=== PATIENT | male | born 1960 | race Caucasian/White ===

== ENCOUNTER 2016-09-20 15:24 | Inpatient (IN) | payer BC ==
[~2016-09-20] VITALS: Ht 182.9 cm; Wt 91.1 kg
[2016-09-20] MEDS ORDERED: cloNIDine HCL 0.1 MG TAB PO ONE (15:45)
[2016-09-20 16:20] LABS: Basophils # (auto) 0 uL; Basophils % (auto) 0.4 % (0.0-2.0); CONDITION Y; Eosinophils # (auto) 0.1 uL; Eosinophils % (auto) 1.2 % (0.0-7.0); Hematocrit 44.5 % (41.0-53.0); Hemoglobin 15.2 g/dL (13.5-17.5); Lymphocytes # (auto) 1.2 uL; Lymphocytes % (auto) 15.4 % (10.0-50.0); Mean Corpuscular Hgb Conc. 34.1 g/dL (32.0-36.0); Mean Corpuscular Volume 90.8 fL (80.0-100.0); Mean Platelet Volume 10.8 fL (7.4-10.4); Monocytes # (auto) 0.6 uL; Monocytes % (auto) 8.2 % (0.0-12.0); Neutrophils # (auto) 5.6 uL; Neutrophils % (auto) 74.8 % (37.0-80.0); Platelet Count (auto) 178 10^3/uL (140-450); Red Cell Distribution Width 16.5 % (11.6-16.0); SUSPECT SEE PRINTOUT; White Blood Cell 7.5 10^3/uL (4.4-10.8)
[2016-09-20 16:25] LABS: Albumin 3.7 g/dL (3.4-5.0); BUN/Creatinine Ratio 13.9; Calcium 8.7 mg/dL (8.5-10.1); Magnesium 2.3 mg/dL (1.6-2.6); Potassium 3.9 mmol/L (3.5-5.1)
[2016-09-20 16:30] LABS: Bilirubin, Total 1.7 mg/dL (0.2-1.0); Total Protein 7.7 g/dL (6.4-8.2)
[2016-09-20 16:32] LABS: B-Type Natriuretic Peptide 1048.35 pg/mL (0-100)
[2016-09-20] MEDS ORDERED: hydrALAZINE HCL 20 MG/ML VL IV ONE (16:45)
[2016-09-20 16:54] LABS: Temperature: 23.1 C (20.0-25.0)
[2016-09-20] MEDS ORDERED: DEXTROSE (50%) 50ML SYRG IV PRN (17:00)
[2016-09-20] MEDS ORDERED: ENALAPRIL MALEATE 2.5 MG TAB PO ONE (17:00)
[2016-09-20] MEDS ORDERED: MORPHINE SULF INJ 2 MG/ML SYRINGE 1ML IV PRN ×2 (17:15)
[2016-09-20] MEDS ORDERED: NITROGLYCERIN 0.4 MG SL TAB SL PRN (17:15)
[2016-09-20] MEDS ORDERED: ONDANSETRON HCL 4 MG/2 ML VIAL IV PRN (17:15)
[2016-09-20] MEDS ORDERED: ACETAMINOPHEN 325 MG TAB PO PRN (17:15)
[2016-09-20] MEDS ORDERED: DOCUSATE SOD 100 MG CAP PO PRN (17:15)
[2016-09-20] MEDS ORDERED: TEMAZEPAM 15 MG CAP PO PRN (17:15)
[2016-09-20 17:27] LABS: Platelet Estimate Adequate; RBC Morphology Normal
[2016-09-20] MEDS: InsuLIN REG 1unit/0.01ml Soln (100units/ml) SC SCH ×2 (18:30→22:00)
[2016-09-20] MEDS: FUROSEMIDE 40 MG/4 ML VIAL IV SCH (18:30)
[2016-09-20] MEDS: ACCU-CHEK COMFORT CURVE STRIP VI SCH ×2 (18:37→22:00)
[2016-09-20 21:55] VITALS: BP 196/130
[2016-09-20] MEDS: FAMOTIDINE 20 MG TAB PO SCH (22:09)
[2016-09-20] MEDS: SODIUM CHLOR 0.9% PF (SALINE LOCK) 10ML VIAL IV SCH (22:09)
[2016-09-20] MEDS: POTASSIUM CHL 10 Meq TABLET PO SCH (22:09)
[2016-09-20] MEDS: CARVEDILOL 3.125 MG TAB PO SCH (22:09)
[2016-09-20] MEDS: cloNIDine HCL 0.1 MG TAB PO PRN (23:23)
[2016-09-20 23:36] LABS: Urine RBC None Seen /hpf (0 - 3)
[2016-09-20 23:44] LABS: Urine Bilirubin Negative (Negative); Urine Blood Negative /uL (Negative); Urine Color Yellow (Yellow); Urine Glucose Normal (Normal); Urine Ketone Negative (Negative); Urine Nitrite Negative (Negative); Urine Urobilinogen Normal (Negative)
[2016-09-21] VITALS (7 sets, daily range): BP systolic 145–187; BP diastolic 99–117
[2016-09-21] MEDS: cloNIDine HCL 0.1 MG TAB PO PRN ×2 (01:25→13:26)
[2016-09-21] MEDS: SODIUM CHLOR 0.9% PF (SALINE LOCK) 10ML VIAL IV SCH ×3 (05:32→22:13)
[2016-09-21] MEDS: FUROSEMIDE 40 MG/4 ML VIAL IV SCH ×2 (05:32→17:40)
[2016-09-21] MEDS: InsuLIN REG 1unit/0.01ml Soln (100units/ml) SC SCH (05:41)
[2016-09-21] MEDS: ACCU-CHEK COMFORT CURVE STRIP VI SCH (05:41)
[2016-09-21] MEDS ORDERED: PNEUMOCOCCAL VACC POLYS 25 MCG/0.5 ML VIAL IM ONE (06:00)
[2016-09-21 07:00] LABS: Basophils # (auto) 0 uL; Basophils % (auto) 0.5 % (0.0-2.0); CONDITION Y; Eosinophils # (auto) 0.2 uL; Eosinophils % (auto) 3.7 % (0.0-7.0); Hematocrit 40.9 % (41.0-53.0); Hemoglobin 13.7 g/dL (13.5-17.5); Lymphocytes # (auto) 1.3 uL; Lymphocytes % (auto) 22.7 % (10.0-50.0); Mean Corpuscular Hemoglobin 30.9 pg (28.0-32.0); Mean Corpuscular Hgb Conc. 33.5 g/dL (32.0-36.0); Mean Corpuscular Volume 92.2 fL (80.0-100.0); Mean Platelet Volume 10.6 fL (7.4-10.4); Monocytes # (auto) 0.7 uL; Neutrophils # (auto) 3.4 uL; Neutrophils % (auto) 60.1 % (37.0-80.0); Platelet Count (auto) 163 10^3/uL (140-450); White Blood Cell 5.6 10^3/uL (4.4-10.8)
[2016-09-21 07:26] LABS: Albumin 3.2 g/dL (3.4-5.0); BUN/Creatinine Ratio 17.8; Bilirubin, Total 1.2 mg/dL (0.2-1.0); Calcium 8.5 mg/dL (8.5-10.1); Potassium 3.7 mmol/L (3.5-5.1); Total Protein 6.8 g/dL (6.4-8.2)
[2016-09-21] MEDS ORDERED: ENALAPRIL MALEATE 2.5 MG TAB PO SCH (10:00)
[2016-09-21] MEDS: FAMOTIDINE 20 MG TAB PO SCH ×2 (10:01→22:12)
[2016-09-21] MEDS: POTASSIUM CHL 10 Meq TABLET PO SCH ×2 (10:01→22:12)
[2016-09-21] MEDS: MULTIPLE VITAMIN TAB PO SCH (10:01)
[2016-09-21] MEDS: CARVEDILOL 3.125 MG TAB PO SCH ×2 (10:02→22:13)
[2016-09-21] MEDS ORDERED: CARVEDILOL 3.125 MG TAB PO ONE (10:45)
[2016-09-21] MEDS ORDERED: NITROFURANTOIN (MONO) 100 mg CAP PO ONE (11:00)
[2016-09-21] MEDS: Boost Glucose Control 8 Ounces PO SCH ×2 (12:00→17:41)
[2016-09-21] MEDS: ENALAPRIL MALEATE 2.5 MG TAB PO SCH (17:41)
[2016-09-21] MEDS: NITROFURANTOIN (MONO) 100 mg CAP PO SCH (22:12)
[2016-09-22] VITALS (7 sets, daily range): BP systolic 151–176; BP diastolic 101–122
[2016-09-22] MEDS: cloNIDine HCL 0.1 MG TAB PO PRN ×7 (00:10→16:24)
[2016-09-22] MEDS: FUROSEMIDE 40 MG/4 ML VIAL IV SCH ×2 (05:18→18:12)
[2016-09-22] MEDS: SODIUM CHLOR 0.9% PF (SALINE LOCK) 10ML VIAL IV SCH ×3 (05:18→21:40)
[2016-09-22 06:26] LABS: Basophils # (auto) 0 uL; Basophils % (auto) 0.6 % (0.0-2.0); CONDITION Y; Eosinophils # (auto) 0.2 uL; Eosinophils % (auto) 3.2 % (0.0-7.0); Hemoglobin 14.5 g/dL (13.5-17.5); Lymphocytes # (auto) 1.3 uL; Lymphocytes % (auto) 20.3 % (10.0-50.0); Mean Corpuscular Hemoglobin 30.5 pg (28.0-32.0); Mean Corpuscular Hgb Conc. 33.1 g/dL (32.0-36.0); Mean Corpuscular Volume 92.2 fL (80.0-100.0); Mean Platelet Volume 10.7 fL (7.4-10.4); Monocytes # (auto) 0.8 uL; Monocytes % (auto) 12.3 % (0.0-12.0); Neutrophils # (auto) 4.2 uL; Neutrophils % (auto) 63.6 % (37.0-80.0); Platelet Count (auto) 179 10^3/uL (140-450); Red Cell Distribution Width 16.8 % (11.6-16.0); White Blood Cell 6.6 10^3/uL (4.4-10.8)
[2016-09-22 06:55] LABS: Albumin 3.7 g/dL (3.4-5.0); Calcium 8.9 mg/dL (8.5-10.1); Potassium 3.4 mmol/L (3.5-5.1)
[2016-09-22 06:57] LABS: BUN/Creatinine Ratio 18.3
[2016-09-22 07:03] LABS: Bilirubin, Total 1.3 mg/dL (0.2-1.0); Total Protein 7.5 g/dL (6.4-8.2)
[2016-09-22] MEDS: ENALAPRIL MALEATE 2.5 MG TAB PO SCH (08:20)
[2016-09-22] MEDS: Boost Glucose Control 8 Ounces PO SCH ×3 (08:20→18:12)
[2016-09-22] MEDS: NITROFURANTOIN (MONO) 100 mg CAP PO SCH (09:51)
[2016-09-22] MEDS: FAMOTIDINE 20 MG TAB PO SCH ×2 (09:51→21:40)
[2016-09-22] MEDS: MULTIPLE VITAMIN TAB PO SCH (09:51)
[2016-09-22] MEDS: CARVEDILOL 3.125 MG TAB PO SCH ×2 (09:51→21:39)
[2016-09-22] MEDS: POTASSIUM CHL 10 Meq TABLET PO SCH ×2 (09:52→21:38)
[2016-09-22] MEDS ORDERED: POTASSIUM CHL 10 Meq TABLET PO ONE (11:45)
[2016-09-22] MEDS ORDERED: cloNIDine HCL 0.1 MG TAB PO PRN (11:45)
[2016-09-22] MEDS ORDERED: CLON0.2T12 PO (15:18)
[2016-09-22] MEDS ORDERED: CAR125T OR (15:18)
[2016-09-22] MEDS ORDERED: SPIR25TA88 PO (15:18)
[2016-09-22] MEDS ORDERED: LISI40TA PO (15:18)
[2016-09-22] MEDS ORDERED: AML5T PO (15:18)
[2016-09-22] MEDS ORDERED: ENALAPRIL MALEATE 2.5 MG TAB PO SCH ×2 (18:00)
[2016-09-22] MEDS: ENALAPRIL MALEATE 10 MG TAB PO SCH (18:13)
[2016-09-23 05:00] VITALS: BP 157/105
[2016-09-23] MEDS: FUROSEMIDE 40 MG/4 ML VIAL IV SCH (06:19)
[2016-09-23] MEDS: cloNIDine HCL 0.1 MG TAB PO PRN (06:20)
[2016-09-23] MEDS: SODIUM CHLOR 0.9% PF (SALINE LOCK) 10ML VIAL IV SCH ×3 (06:21→22:42)
[2016-09-23 06:37] LABS: BUN/Creatinine Ratio 19.2; Calcium 8.8 mg/dL (8.5-10.1); Potassium 4.5 mmol/L (3.5-5.1)
[2016-09-23] MEDS: Boost Glucose Control 8 Ounces PO SCH ×3 (08:00→19:00)
[2016-09-23] MEDS: ENALAPRIL MALEATE 10 MG TAB PO SCH ×2 (08:42→17:51)
[2016-09-23 09:00] VITALS: BP 155/98
[2016-09-23] MEDS: POTASSIUM CHL 10 Meq TABLET PO SCH (10:00)
[2016-09-23] MEDS: FAMOTIDINE 20 MG TAB PO SCH ×2 (10:01→22:44)
[2016-09-23] MEDS: CARVEDILOL 3.125 MG TAB PO SCH ×2 (10:01→22:43)
[2016-09-23] MEDS: MULTIPLE VITAMIN TAB PO SCH (10:01)
[2016-09-23] MEDS ORDERED: HYDROcodone-ACET 5/325MG TAB PO PRN (10:45)
[2016-09-23 11:05] LABS: Cholesterol 114 mg/dL (< 200); HDL Cholesterol 30 mg/dL (40-59); LDL Cholesterol 74 mg/dL (< 100); Triglycerides 85 mg/dL (< 150)
[2016-09-23] MEDS: ASPirin 81 mg TAB PO SCH (11:36)
[2016-09-23 13:00] VITALS: BP_SYST 123; BP_SYST 141; BP_DIAS 72; BP_DIAS 86
[2016-09-23 16:50] VITALS: BP 150/104
[2016-09-23 22:00] VITALS: BP 143/87
[2016-09-24] MEDS ORDERED: cloNIDine HCL 0.1 MG TAB PO PRN (04:45)
[2016-09-24] MEDS ORDERED: cloNIDine HCL 0.1 MG TAB ONE (04:56)
[2016-09-24 05:00] VITALS: BP 173/116
[2016-09-24] MEDS: SODIUM CHLOR 0.9% PF (SALINE LOCK) 10ML VIAL IV SCH ×3 (05:54→21:35)
[2016-09-24 05:58] VITALS: BP 160/114
[2016-09-24] MEDS: ENALAPRIL MALEATE 10 MG TAB PO SCH ×2 (08:09→17:50)
[2016-09-24] MEDS: Boost Glucose Control 8 Ounces PO SCH ×3 (08:13→14:59)
[2016-09-24 09:00] VITALS: BP 167/109
[2016-09-24] MEDS ORDERED: POTASSIUM CHL 10 Meq TABLET PO SCH (10:00)
[2016-09-24] MEDS ORDERED: FUROSEMIDE 40 MG/4 ML VIAL IV SCH (10:00)
[2016-09-24] MEDS ORDERED: ISOSORBIDE MONONITRATE 60 MG TAB PO ONE (10:15)
[2016-09-24] MEDS ORDERED: SPIRONOLACTONE 25 MG TAB PO ONE (10:15)
[2016-09-24] MEDS: ASPirin 81 mg TAB PO SCH (10:26)
[2016-09-24] MEDS: MULTIPLE VITAMIN TAB PO SCH (10:26)
[2016-09-24] MEDS: FAMOTIDINE 20 MG TAB PO SCH ×2 (10:26→21:36)
[2016-09-24] MEDS ORDERED: hydrALAZINE HCL 25 MG TAB PO ONE (12:30)
[2016-09-24 13:04] VITALS: BP 151/101
[2016-09-24 17:00] VITALS: BP 150/100
[2016-09-24 21:35] VITALS: BP 160/94
[2016-09-24] MEDS: hydrALAZINE HCL 25 MG TAB PO SCH (21:35)
[2016-09-24] MEDS: CARVEDILOL 3.125 MG TAB PO SCH (21:36)
[2016-09-25 04:40] VITALS: BP 140/95
[2016-09-25] MEDS: SODIUM CHLOR 0.9% PF (SALINE LOCK) 10ML VIAL IV SCH ×3 (05:56→21:32)
[2016-09-25 06:40] LABS: Calcium 8.8 mg/dL (8.5-10.1); Potassium 3.8 mmol/L (3.5-5.1)
[2016-09-25 06:42] LABS: BUN/Creatinine Ratio 22.9
[2016-09-25] MEDS: Boost Glucose Control 8 Ounces PO SCH ×3 (08:00→18:02)
[2016-09-25] MEDS: ENALAPRIL MALEATE 10 MG TAB PO SCH ×2 (08:00→18:11)
[2016-09-25 09:03] VITALS: BP 168/109
[2016-09-25] MEDS: MULTIPLE VITAMIN TAB PO SCH (10:56)
[2016-09-25] MEDS: CARVEDILOL 3.125 MG TAB PO SCH ×2 (10:56→21:33)
[2016-09-25] MEDS: hydrALAZINE HCL 25 MG TAB PO SCH ×2 (10:57→21:32)
[2016-09-25] MEDS: FUROSEMIDE 20 MG TAB PO SCH (10:57)
[2016-09-25] MEDS: SPIRONOLACTONE 25 MG TAB PO SCH (10:58)
[2016-09-25] MEDS: ISOSORBIDE MONONITRATE 60 MG TAB PO SCH (10:59)
[2016-09-25] MEDS: FAMOTIDINE 20 MG TAB PO SCH ×2 (11:00→21:33)
[2016-09-25] MEDS: ASPirin 81 mg TAB PO SCH (11:01)
[2016-09-25 12:19] VITALS: BP 161/109
[2016-09-25] MEDS: HYDROcodone-ACET 5/325MG TAB PO PRN ×2 (12:21→18:02)
[2016-09-25 16:53] VITALS: BP 150/90
[2016-09-25 21:51] VITALS: BP 158/86
[2016-09-26 04:44] VITALS: BP 177/113
[2016-09-26] MEDS: SODIUM CHLOR 0.9% PF (SALINE LOCK) 10ML VIAL IV SCH ×2 (05:57→22:15)
[2016-09-26 06:41] LABS: CONDITION Y; Hematocrit 40.4 % (41.0-53.0); Hemoglobin 13.8 g/dL (13.5-17.5); Mean Corpuscular Hemoglobin 30.9 pg (28.0-32.0); Mean Corpuscular Hgb Conc. 34.1 g/dL (32.0-36.0); Mean Corpuscular Volume 90.4 fL (80.0-100.0); Platelet Count (auto) 172 10^3/uL (140-450); Red Cell Distribution Width 16.6 % (11.6-16.0); White Blood Cell 6.2 10^3/uL (4.4-10.8)
[2016-09-26 06:48] LABS: INR 1.1 (0.9-1.15)
[2016-09-26 06:50] LABS: Metamyelocytes % 0; Myelocytes % 0; Promyelocytes % 0; Reactive Lymphocytes 0
[2016-09-26 07:09] LABS: Albumin 3.4 g/dL (3.4-5.0); BUN/Creatinine Ratio 21.8; Bilirubin, Total 1.5 mg/dL (0.2-1.0); Calcium 8.7 mg/dL (8.5-10.1); Potassium 4.1 mmol/L (3.5-5.1); Total Protein 7.3 g/dL (6.4-8.2)
[2016-09-26 07:43] LABS: Platelet Estimate Adequate
[2016-09-26] MEDS: Boost Glucose Control 8 Ounces PO SCH (08:00)
[2016-09-26] MEDS: ENALAPRIL MALEATE 10 MG TAB PO SCH ×2 (08:32→18:31)
[2016-09-26 09:00] VITALS: BP 158/100
[2016-09-26] MEDS: FAMOTIDINE 20 MG TAB PO SCH ×2 (10:00→22:17)
[2016-09-26] MEDS: ASPirin 81 mg TAB PO SCH (10:08)
[2016-09-26] MEDS: FUROSEMIDE 20 MG TAB PO SCH (10:08)
[2016-09-26] MEDS: SPIRONOLACTONE 25 MG TAB PO SCH (10:09)
[2016-09-26] MEDS: MULTIPLE VITAMIN TAB PO SCH (10:09)
[2016-09-26] MEDS: hydrALAZINE HCL 25 MG TAB PO SCH ×2 (10:10→22:16)
[2016-09-26] MEDS: ISOSORBIDE MONONITRATE 60 MG TAB PO SCH (10:11)
[2016-09-26] MEDS ORDERED: ISOSORBIDE MONONITRATE 60 MG TAB PO ONE (10:45)
[2016-09-26] MEDS: CARVEDILOL 12.5 MG TAB PO SCH ×2 (11:36→22:16)
[2016-09-26] MEDS ORDERED: Boost Glucose Control 8 Ounces PO SCH (12:00)
[2016-09-26] MEDS ORDERED: IOHEXOL 350 MG/ML 100ML IJ ONE (12:12)
[2016-09-26] MEDS ORDERED: LIDOCAINE 2%HCL (LOCAL ANESTH.) INJ 20ML MDV ONE (12:12)
[2016-09-26 13:00] VITALS: BP 148/91
[2016-09-26] MEDS ORDERED: hydrALAZINE HCL 25 MG TAB PO SCH (14:00)
[2016-09-26] MEDS ORDERED: fentaNYL CITRATE 100 MCG/2 ML VL ONE (14:03)
[2016-09-26] MEDS ORDERED: MIDAZOLAM HCL 1MG/1ML-2 ML VIAL ONE (14:03)
[2016-09-26 16:35] VITALS: BP 138/84
[2016-09-26 21:48] VITALS: BP 148/98
[2016-09-27 05:00] VITALS: BP 145/77
[2016-09-27] MEDS: SODIUM CHLOR 0.9% PF (SALINE LOCK) 10ML VIAL IV SCH ×2 (05:26→14:00)
[2016-09-27] MEDS: hydrALAZINE HCL 25 MG TAB PO SCH ×2 (05:27→14:00)
[2016-09-27 07:22] LABS: BUN/Creatinine Ratio 23.1; Calcium 8.7 mg/dL (8.5-10.1)
[2016-09-27] MEDS: ENALAPRIL MALEATE 10 MG TAB PO SCH (08:23)
[2016-09-27 09:00] VITALS: BP 144/89
[2016-09-27] MEDS ORDERED: CLOPIDOGREL BISULFATE 75 MG TAB PO SCH (10:00)
[2016-09-27] MEDS ORDERED: ISOSORBIDE MONONITRATE 60 MG TAB PO SCH (10:00)
[2016-09-27] MEDS: MULTIPLE VITAMIN TAB PO SCH (10:32)
[2016-09-27] MEDS: FAMOTIDINE 20 MG TAB PO SCH (10:32)
[2016-09-27] MEDS: SPIRONOLACTONE 25 MG TAB PO SCH (10:32)
[2016-09-27] MEDS: FUROSEMIDE 20 MG TAB PO SCH (10:32)
[2016-09-27] MEDS: ASPirin 81 mg TAB PO SCH (10:33)
[2016-09-27] MEDS: CARVEDILOL 12.5 MG TAB PO SCH (10:33)
[2016-09-27 12:44] VITALS: BP 134/79
[2016-09-27 13:00] VITALS: BP 116/68
== END 2016-09-27 16:26 | disposition home or self-care (01) | DRG 286 ==
LOC: ER 15:31 → TELE 15:32 → TELE-CENTR 21:53
PROVIDERS: ADMIT Internal Medicine; ATTEND Internal Medicine
PROC: 4A023N7 Measurement of Cardiac Sampling and Pressure, Left Heart, Percutaneous Approach (ICD-10-PCS; principal; 2016-09-26)
PROC: B2111ZZ Fluoroscopy of Multiple Coronary Arteries using Low Osmolar Contrast (ICD-10-PCS; 2016-09-26)
PROC: B2151ZZ Fluoroscopy of Left Heart using Low Osmolar Contrast (ICD-10-PCS; 2016-09-26)
DX: I13.0 Hypertensive heart and chronic kidney disease with heart failure and stage 1 through stage 4 chronic kidney disease, or unspecified chronic kidney disease (principal); I50.43 Acute on chronic combined systolic (congestive) and diastolic (congestive) heart failure; I31.3 Pericardial effusion (noninflammatory); E11.22 Type 2 diabetes mellitus with diabetic chronic kidney disease; E11.21 Type 2 diabetes mellitus with diabetic nephropathy; E78.5 Hyperlipidemia, unspecified; I25.10 Atherosclerotic heart disease of native coronary artery without angina pectoris; I42.0 Dilated cardiomyopathy; E11.51 Type 2 diabetes mellitus with diabetic peripheral angiopathy without gangrene; F17.210 Nicotine dependence, cigarettes, uncomplicated; N18.3 Chronic kidney disease, stage 3 (moderate); Z82.49 Family history of ischemic heart disease and other diseases of the circulatory system; Z83.3 Family history of diabetes mellitus; Z86.711 Personal history of pulmonary embolism; Z23 Encounter for immunization; Z86.718 Personal history of other venous thrombosis and embolism; Z91.14 Patient's other noncompliance with medication regimen; Z79.02 Long term (current) use of antithrombotics/antiplatelets; Z79.82 Long term (current) use of aspirin; Z91.19 Patient's noncompliance with other medical treatment and regimen
CPT/HCPCS: 36415; 71010; 80048; 80053; 80061; 81001; 82962; 83036; 83735; 83880; 84443; 84484; 85007; 85025; 85027; 85610; 87086; 93005; 93306; 93458; 96374; J2250

== ENCOUNTER 2019-06-05 15:21 | Emergency (ER) | payer BC, OTHER ==
[~2019-06-05] VITALS: Ht 182.9 cm; Wt 72.6 kg
[~2019-06-05 15:21] MED LIST: AML5T PO; CAR125T OR; CLON0.2T12 PO; LISI40TA11 PO; SPIR25TA88 PO
[2019-06-05] MEDS ORDERED: cloNIDine HCL 0.1 MG TAB PO ONE ×2 (15:45→21:30)
[2019-06-05 16:02] LABS: Basophils # (auto) 0.1 10 ^3/uL (0-0.2); Basophils % (auto) 0.7 % (0.0-2.0); Eosinophils # (auto) 0 10 ^3/uL (0-0.8); Eosinophils % (auto) 0.4 % (0.0-7.0); Hematocrit 46.8 % (41.0-53.0); Hemoglobin 15.8 g/dL (13.5-17.5); Lymphocytes # (auto) 0.4 10 ^3/uL (0.4-5.4); Lymphocytes % (auto) 5.3 % (10.0-50.0); Mean Corpuscular Hemoglobin 29.7 pg (28.0-32.0); Mean Corpuscular Hgb Conc. 33.8 g/dL (32.0-36.0); Mean Corpuscular Volume 87.9 fL (80.0-100.0); Monocytes # (auto) 0.8 10 ^3/uL (0-1.3); Monocytes % (auto) 9.4 % (0.0-12.0); Neutrophils # (auto) 6.9 10 ^3/uL (1.6-8.6); Neutrophils % (auto) 84.2 % (37.0-80.0); Platelet Count (auto) 181 10^3/uL (140-450); Red Blood Cells 5.33 10^6/uL (4.5-5.90); Red Cell Distribution Width 17.1 % (11.8-14.3); White Blood Cell 8.2 10^3/uL (4.4-10.8)
[2019-06-05 16:04] LABS: INR 1.28 (0.9-1.15); Partial Thromboplastin Time 27.2 sec (23.64-32.05)
[2019-06-05 16:05] LABS: Albumin 3.1 g/dL (3.4-5.0); BUN/Creatinine Ratio 15.5; Calcium 8.7 mg/dL (8.5-10.1); Potassium 5.1 mmol/L (3.5-5.1)
[2019-06-05] MEDS ORDERED: SODIUM CHLORIDE 0.9% 1,000 ML IV ONE (16:06)
[2019-06-05 16:10] LABS: Bilirubin, Total 1.4 mg/dL (0.2-1.0); Total Protein 7.1 g/dL (6.4-8.2)
[2019-06-05] MEDS ORDERED: SPIRONOLACTONE 25 MG TAB PO ONE (16:15)
[2019-06-05] MEDS ORDERED: MORPHINE SULFATE 4 MG/ML SYR/VIAL IV PRN (16:15)
[2019-06-05] MEDS ORDERED: FUROSEMIDE 40 MG/4 ML VIAL IV ONE (16:15)
[2019-06-05] MEDS ORDERED: ONDANSETRON HCL 4 MG/2 ML VIAL IV ONE (16:15)
[2019-06-05] MEDS ORDERED: FUROSEMIDE INJECTION 10 ML ONE (16:34)
[2019-06-05] MEDS ORDERED: ENOXAPARIN SOD 80 MG/0.8ML SYRINGE SC ONE (20:15)
[2019-06-05] MEDS ORDERED: LABETALOL HCL 5 MG/ML 4ML SYRINGE IV ONE (23:15)
[2019-06-05 23:54] VITALS: BP 140/110
== END 2019-06-06 00:14 | disposition short-term general hospital (02) ==
LOC: EDUNIT# 15:21 → ER 15:21 → EDBD 15:21 → ER 06-06 00:14
DX: I13.0 Hypertensive heart and chronic kidney disease with heart failure and stage 1 through stage 4 chronic kidney disease, or unspecified chronic kidney disease (principal); I50.43 Acute on chronic combined systolic (congestive) and diastolic (congestive) heart failure; E11.22 Type 2 diabetes mellitus with diabetic chronic kidney disease; N18.9 Chronic kidney disease, unspecified; F17.210 Nicotine dependence, cigarettes, uncomplicated; E78.5 Hyperlipidemia, unspecified; R79.89 Other specified abnormal findings of blood chemistry
CPT/HCPCS: 36415; 71046; 80053; 83735; 83880; 84443; 84484; 85025; 85610; 85730; 93005; 96372; 96374; 96375; 99285; J1650; J1940